=== PATIENT | female | born 1970 | race Caucasian/White ===

== ENCOUNTER 2017-03-30 10:37 | Emergency (ER) | payer OTHER ==
[~2017-03-30] VITALS: Ht 170.2 cm; Wt 65.8 kg
[2017-03-30 11:38] VITALS: BP_SYST 115
[2017-03-30] MEDS ORDERED: KETOROLAC TROMETHAMINE 60 MG/2 ML VIAL IM ONE (13:45)
[2017-03-30] MEDS ORDERED: ONDANSETRON 4 MG ODT TAB PO ONE (14:15)
[2017-03-30] MEDS ORDERED: DIPH-TET-PERTUS Vaccine 0.5 ML VIAL (ADACEL) I.M. ONE (14:15)
[2017-03-30] MEDS ORDERED: BACITRACIN 1 GM OINT TP ONE (14:30)
[2017-03-30 15:24] VITALS: BP_SYST 111
== END 2017-03-30 15:24 | disposition home or self-care (01) ==
LOC: SED 10:37
DX: S93.401A Sprain of unspecified ligament of right ankle, initial encounter (principal); S93.402A Sprain of unspecified ligament of left ankle, initial encounter; S43.402A Unspecified sprain of left shoulder joint, initial encounter; S29.012A Strain of muscle and tendon of back wall of thorax, initial encounter; S39.012A Strain of muscle, fascia and tendon of lower back, initial encounter; S60.812A Abrasion of left wrist, initial encounter; F17.210 Nicotine dependence, cigarettes, uncomplicated; Y04.0XXA Assault by unarmed brawl or fight, initial encounter; Y93.89 Activity, other specified; Y92.89 Other specified places as the place of occurrence of the external cause; Y99.8 Other external cause status
CPT/HCPCS: 70450; 72110; 72125; 73030; 73610; 81025; 90471; 90715; 96372; 99284; J1885

== ENCOUNTER 2018-09-28 18:15 | Emergency (ER) | payer OTHER ==
[~2018-09-28] VITALS: Ht 170.2 cm; Wt 90.7 kg
[2018-09-28 18:42] VITALS: BP_SYST 107
[2018-09-28] MEDS ORDERED: NACL 0.9% 1,000 ML IV ONE (20:15)
[2018-09-28 21:02] LABS: CALCIUM 9.3 mg/dL (8.4-11.0); CREATININE 0.73 mg/dL (0.55-1.30); POTASSIUM 3.8 mmol/L (3.5-5.1)
[2018-09-28 21:07] LABS: ALBUMIN 3.6 g/dL (3.4-4.8); TOTAL BILIRUBIN 0.3 mg/dL (0.0-1.0)
[2018-09-28 21:08] LABS: BASOPHILS % (AUTO) 0.4 % (0.0-2.0); EOSINOPHILS # (AUTO) 0.3 K/uL (0.0-0.4); EOSINOPHILS % (AUTO) 3.8 % (0.0-4.0); HEMATOCRIT 39.5 % (36-48); LYMPHOCYTES # (AUTO) 0.7 K/uL (1.0-5.5); LYMPHOCYTES % (AUTO) 9.2 % (20.5-51.5); MEAN CORPUSCULAR HEMOGLOBIN 30 pg (27-31); MEAN CORPUSCULAR HGB CONC 33 % (32-36); MEAN CORPUSCULAR VOLUME 91 fL (79.0-98.0); MONOCYTES # (AUTO) 0.6 K/uL (0.0-1.0); MONOCYTES % (AUTO) 7.8 % (1.7-9.3); NEUTROPHILS # (AUTO) 6.1 K/uL (1.8-7.7); NEUTROPHILS % (AUTO) 78.8 % (40.0-70.0); PLATELET COUNT (AUTO) 241 K/uL (130-430); RED BLOOD CELL COUNT(AUTO) 4.36 MIL/uL (4.2-6.2); RED CELL DISTRIBUTION WIDTH 14.9 % (9.0-15.0); WHITE BLOOD COUNT (AUTO) 7.7 K/uL (4.8-10.8)
[2018-09-28] MEDS ORDERED: KETOROLAC TROMETHAMINE 30 MG VIAL IVP ONE (22:30)
[2018-09-29] MEDS ORDERED: OSELTAMIVIR PHOSPHATE 75 MG CAPSULE PO ONE
[2018-09-29 00:09] VITALS: BP_SYST 107
== END 2018-09-29 00:09 | disposition home or self-care (01) ==
LOC: SED 18:15
DX: J11.1 Influenza due to unidentified influenza virus with other respiratory manifestations (principal); R68.83 Chills (without fever)
CPT/HCPCS: 36415; 71045; 80053; 81002; 81025; 85025; 86710; 93005; 96361; 96374; 99284; G9035; J1885; J7030

== ENCOUNTER 2022-07-12 10:01 | Emergency (ER) | payer MEDICAID, OTHER ==
[~2022-07-12] VITALS: Ht 165.1 cm; Wt 86.2 kg
[2022-07-12 10:57] VITALS: BP_SYST 111
[2022-07-12] MEDS ORDERED: ONDANSETRON 4 MG ODT TAB PO ONE (11:00)
[2022-07-12] MEDS ORDERED: MECLIZINE HCL 25 MG TABLET (ANITVERT) PO ONE (11:00)
[2022-07-12] MEDS ORDERED: KETOROLAC TROMETHAMINE 60 MG/2 ML VIAL IM ONE (11:15)
[2022-07-12] MEDS ORDERED: ONDA8TAB60 PO (11:39)
[2022-07-12] MEDS ORDERED: IBUP-1971 PO (11:39)
[2022-07-12] MEDS ORDERED: MECL-160 PO (11:39)
[2022-07-12 11:49] VITALS: BP_SYST 114
== END 2022-07-12 11:51 | disposition home or self-care (01) ==
LOC: SED 10:01
DX: R42 Dizziness and giddiness (principal); R11.2 Nausea with vomiting, unspecified; R51.9 Headache, unspecified; Z79.899 Other long term (current) drug therapy
CPT/HCPCS: 99283; 96372; J8597; Q0162; J1885